=== PATIENT | male | born 1995 | race Caucasian/White ===

== ENCOUNTER 2022-10-04 10:47 | Emergency (ER) | payer OTHER ==
--- NOTE | 2022-10-04 11:45 | XR ---
EXAMINATION TYPE: XR chest 2V DATE OF EXAM: 10/04/2022 11:40 AM COMPARISON: Chest radiographs from 10/04/2022 TECHNIQUE: XR chest 2V Frontal and lateral views of the chest. CLINICAL INDICATION:Male, 26 years old with history of Chest Pain; FINDINGS: Lungs/Pleura: There is no evidence of pleural effusion, focal consolidation, or pneumothorax. Pulmonary vascularity: Unremarkable. Heart/mediastinum: Cardiomediastinal silhouette is unremarkable. Musculoskeletal: No acute osseous pathology. IMPRESSION: No acute cardiopulmonary disease/process.
[2022-10-04 13:10] LABS: Basophils # (A) 0.1 k/uL (0-0.2); Basophils % (A) 2 %; Eosinophils % (A) 11 %; HCT 46.7 % (39.0-53.0); HGB 16.4 gm/dL (13.0-17.5); Lymphocytes # (A) 2.3 k/uL (1.0-4.8); Lymphocytes % (A) 26 %; MCH 29.3 pg (25.0-35.0); MCHC 35.2 g/dL (31.0-37.0); MCV 83.1 fL (80.0-100.0); Mean Platelet Volume 8.3; Monocytes # (A) 0.6 k/uL (0-1.0); Monocytes % (A) 7 %; Neutrophils # (A) 4.6 k/uL (1.3-7.7); Neutrophils % (A) 52 %; Platelet Count 281 k/uL (150-450); RBC 5.62 m/uL (4.30-5.90); RDW 12.8 % (11.5-15.5); WBC 8.9 k/uL (3.8-10.6)
[2022-10-04 13:24] LABS: ALT 24 U/L (4-49); AST 27 U/L (17-59); African American GFR (CKD) >90 (>60 ml/min/1.73 sqM); Alkaline Phosphatase 93 U/L (38-126); Anion Gap 9 mmol/L; Blood Urea Nitrogen 13 mg/dL (9-20); Carbon Dioxide 26 mmol/L (22-30); Chloride 108 mmol/L (98-107); Glucose 91 mg/dL (74-99); Magnesium 1.9 mg/dL (1.6-2.3); Non-African American GFR(CKD) >90 (>60 ml/min/1.73 sqM); Potassium 5.1 mmol/L (3.5-5.1); Sodium 143 mmol/L (137-145); Total Bilirubin 0.6 mg/dL (0.2-1.3)
[2022-10-04] MEDS ORDERED: KETOROLAC 15 MG/ML 1 ML VIAL IM STA (16:07)
[2022-10-04] MEDS ORDERED: ALBUTEROL NEBULIZED 2.5 MG/3 ML INHALATION STA (16:07)
--- NOTE | 2022-10-04 16:24 | ED ---
General Adult HPI - General Chief complaint: Chest Pain Stated complaint: chest pain, lt side numbness Time Seen by Provider: 10/04/22 15:59 Source: patient, RN notes reviewed Mode of arrival: ambulatory Limitations: no limitations - History of Present Illness Initial comments: Patient is a 26-year-old male presenting to the emergency room comp laints of sudden on of chest pain which was stabbing in nature midsternal any known aggravating or alleviating factors. This chest pain has since subsided since his arrival to the emergency room but he has continued atypical chest pain on the right side that is worse with deep inspiration radiating posteriorly. He does have a past medical history significant for asthma and has not utilized breathing treatments in quite some time and reports that his wheeze recently has become quite low. He also is exposed to inhalants at work on a regular basis. He has a family past medical history significant for his father having a heart attack at the age of 35. He denies any other associated symptoms with his stabbing chest pain or his chest pain that he is currently experiencing including any orthopnea, diaphoresis, headache, dizziness, lower extremity edema, shortness breath with exertion, abdominal pain, nausea, vomiting, fevers or chills. He has no other significant past medical history. - Related Data Previous Rx's Medication Instructions Recorded Albuterol Inhaler [Ventolin Hfa 1 - 2 puff INHALATION Q6H PRN 30 10/04/22 Inhaler] Days #1 each methylPREDNISolone Dose Pack 4 mg PO DIRECTED #21 tab 10/04/22 [Medrol Dose Pack] Allergies Allergy/AdvReac Type Severity Reaction Status Date / Time diphenhydramine Allergy Rash/Hives Verified 10/04/22 11:20 [From Benadryl] Penicillins Allergy Rash/Hives Verified 10/04/22 11:20 Review of Systems ROS Statement: Those systems with pertinent positive or pertinent negative responses have been documented in the HPI. ROS Other: All systems not noted in ROS Statement are negative. Past Medical History Past Medical History: Asthma History of Any Multi-Drug Resistant Organisms: None Reported Past Surgical History: Orthopedic Surgery Past Psychological History: No Psychological Hx Reported Smoking Status: Current every day smoker Past Alcohol Use History: None Reported Past Drug Use History: Marijuana General Exam - General Exam Comments Initial Comments: GENERAL: No acute distress, well developed, well nourished. HEENT: Normocephalic, atraumatic. Pupils equal, round, reactive to light. Mucous membranes moist. LUNGS: Bilateral upper expiratory wheeze, no rales, rhonchi, or cough, no use of accessory muscles. HEART: Regular rate and rhythm without murmur, rub, or gallop. ABDOMEN: Normal bowel sounds. Soft, non-tender, non-distended. DERMATOLOGIC: Skin intact, without rashes or lesions noted. EXTREMITIES: No edema. No tenderness. Moves all extremities. NEUROLOGIC: Alert & oriented x 3. CN II-XII grossly intact. PSYCHIATRIC: Normal affect and behavior. Limitations: no limitations Course Vital Signs 10/04/22 10/04/22 10/04/22 11:17 16:00 16:01 Temperature 97.7 F Pulse Rate 84 72 Pulse Rate [ 66 Fusion Analyst ] Respiratory 16 18 Rate Blood Pressure 157/95 128/80 O2 Sat by Pulse 97 96 Oximetry 10/04/22 10/04/22 10/04/22 16:35 16:44 17:03 Temperature Pulse Rate 68 72 73 Pulse Rate [ Fusion Analyst ] Respiratory 16 Rate Blood Pressure 127/83 O2 Sat by Pulse 97 Oximetry Medical Decision Making - Medical Decision Making Was pt. sent in by a medical professional or institution? @ -None Did you speak to anyone other than the patient for history? @ -Patient and nurse Did you review nursing and triage notes? @ -Nursing and triage notes reviewed Were old charts reviewed? @ -No previous records available for review Differential Diagnosis? @ -Differential Chest Pain: Stable Angina, Unstable Angina, STEMI, NSTEMI Aortic Dissection, Pneumothorax, Musculoskeletal, Esophageal Spasm GERD, Cholecystitis, Pancreatitis, Zoster, this is not meant to be an all-inclusive list. EKG interpreted by me (3pts min.)? @- Completed at 11:30 demonstrating sinus rhythm, ventricular rate 81 bpm, KS interval 143 ms, QRS duration 90 ms, QT/QTC 361/399 ms, PRT axes 71, 80, 60 X-rays interpreted by me (1pt min.)? @ Chest x-ray 2 view no pleural effusion or consolidation. No cardiomegaly. CT interpreted by me (1pt min.)? @ -NA U/S interpreted by me (1pt. min.)? @ -NA What testing was considered but not performed? (CT, X-rays, U/S, labs)? Why? @ None What meds were considered but not given? Why? @ -None Did you discuss the management of the patient with other professionals? @ -No Did you reconcile home meds? @ -Not applicable Was smoking cessation discussed for >3mins.? @ -I discussed smoking cessation for greater than 3 minutes. The risk of smo bobby were discussed with the patient including but not limited to risks of cancer, stroke, coronary artery disease and COPD. Also discussed with patient were multiple methods of quitting smoking. Lastly we discussed the financial cost of smoking. Was critical care preformed (if so, how long)? @ - No Were there social determinants of health that impacted care today? How? (Homelessness, low income, unemployed, alcoholism, drug addiction, tr ansportation, low edu. Level, literacy, decrease access to med. care, long-term, rehab)? @ -Not applicable Was there de-escalation of care discussed even if they declined? (Discuss DNR or withdrawal of care, Hospice)? @ -No What co-morbidities impacted this encounter? (DM, HTN, Smoking, COPD, CAD, Cancer, CVA, Hep., AIDS, mental health diagnosis, sleep apnea, morbid obesity)? @ -Asthma Was patient admitted / discharged? @ -26-year-old male presenting to the emergency room with complaints of sudden onset of stabbing chest pain along with right-sided pain deep with inspiration radiating posteriorly and wheeze. Labs completed by triage including CBC, CMP, magnesium and troponin reviewed. Troponin negative, magnesium normal, CBC unremarkable with the exception of mildly slightly elevated signal fills consistent with possible asthma exacerbation. Chest x-ray reviewed as indicated above. Wheeze demonstrated on exam along with persistent pleuritic type chest pain. EKG reviewed and history normal sinus rhythm. Toradol IM along with albuterol nebulized treatment given. COVID swab added to laboratory studies are ready completed. COVID swab negative. Repeat troponin negative. Improvement in chest pain and wheeze after Toradol and albuterol treatment. Will discharge home in stable condition with treatment for asthma exacerbation and follow-up with his primary care provider. Case discussed with Dr. Perez. Undiagnosed new problem with uncertain prognosis? @ - None Drug Therapy requiring intensive monitoring for toxicity (Heparin, Nitro, Insulin, Cardizem)? @ - No Were any procedures done? @ - No Diagnosis/symptom? @ -Chest pain Acute, or Chronic, or Acute on Chronic? @ -Not applicable Uncomplicated (without systemic symptoms) or Complicated (systemic symptoms)? @ -Uncomplicated Side effects of treatment? @ -Not applicable Exacerbation, Progression, or Severe Exacerbation] @ -No Poses a threat to life or bodily function? @ -No Diagnosis/symptom? @ -Asthma exacerbation Acute, or Chronic, or Acute on Chronic? @ -Acute on chronic Uncomplicated (without systemic symptoms) or Complicated (systemic symptoms)? @ -Uncomplicated Side effects of treatment? @ -None Exacerbation, Progression, or Severe Exacerbation] @ -Exacerbation Poses a threat to life or bodily function? @ -No - Lab Data Result diagrams: 10/04/22 12:37 10/04/22 12:37 Lab Results 10/04/22 10/04/22 10/04/22 Range/Units 12:37 12:37 12:37 WBC 8.9 (3.8-10.6) k/uL RBC 5.62 (4.30-5.90) m/uL Hgb 16.4 (13.0-17.5) gm/dL Hct 46.7 (39.0-53.0) % MCV 83.1 (80.0-100.0) fL MCH 29.3 (25.0-35.0) pg MCHC 35.2 (31.0-37.0) g/dL RDW 12.8 (11.5-15.5) % Plt Count 281 (150-450) k/uL MPV 8.3 Neutrophils % 52 % Lymphocytes % 26 % Monocytes % 7 % Eosinophils % 11 % Basophils % 2 % Neutrophils # 4.6 (1.3-7.7) k/uL Lymphocytes # 2.3 (1.0-4.8) k/uL Monocytes # 0.6 (0-1.0) k/uL Eosinophils # 1.0 H (0-0.7) k/uL Basophils # 0.1 (0-0.2) k/uL Sodium 143 (137-145) mmol/L Potassium 5.1 (3.5-5.1) mmol/L Chloride 108 H (98-107) mmol/L Carbon Dioxide 26 (22-30) mmol/L Anion Gap 9 mmol/L BUN 13 (9-20) mg/dL Creatinine 0.65 L (0.66-1.25) mg/dL Est GFR (CKD-EPI)AfAm >90 (>60 ml/min/1.73 sqM) Est GFR (CKD-EPI)NonAf >90 (>60 ml/min/1.73 sqM) Glucose 91 (74-99) mg/dL Calcium 10.0 (8.4-10.2) mg/dL Magnesium 1.9 (1.6-2.3) mg/dL Total Bilirubin 0.6 (0.2-1.3) mg/dL AST 27 (17-59) U/L ALT 24 (4-49) U/L Alkaline Phosphatase 93 (38-126) U/L Troponin I <0.012 (0.000-0.034) ng/mL Total Protein 8.0 (6.3-8.2) g/dL Albumin 5.0 (3.5-5.0) g/dL Coronavirus (PCR) (Not Detectd) 10/04/22 10/04/22 Range/Units 16:12 16:50 WBC (3.8-10.6) k/uL RBC (4.30-5.90) m/uL Hgb (13.0-17.5) gm/dL Hct (39.0-53.0) % MCV (80.0-100.0) fL MCH (25.0-35.0) pg MCHC (31.0-37.0) g/dL RDW (11.5-15.5) % Plt Count (150-450) k/uL MPV Neutrophils % % Lymphocytes % % Monocytes % % Eosinophils % % Basophils % % Neutrophils # (1.3-7.7) k/uL Lymphocytes # (1.0-4.8) k/uL Monocytes # (0-1.0) k/uL Eosinophils # (0-0.7) k/uL Basophils # (0-0.2) k/uL Sodium (137-145) mmol/L Potassium (3.5-5.1) mmol/L Chloride (98-107) mmol/L Carbon Dioxide (22-30) mmol/L Anion Gap mmol/L BUN (9-20) mg/dL Creatinine (0.66-1.25) mg/dL Est GFR (CKD-EPI)AfAm (>60 ml/min/1.73 sqM) Est GFR (CKD-EPI)NonAf (>60 ml/min/1.73 sqM) Glucose (74-99) mg/dL Calcium (8.4-10.2) mg/dL Magnesium (1.6-2.3) mg/dL Total Bilirubin (0.2-1.3) mg/dL AST (17-59) U/L ALT (4-49) U/L Alkaline Phosphatase (38-126) U/L Troponin I <0.012 (0.000-0.034) ng/mL Total Protein (6.3-8.2) g/dL Albumin (3.5-5.0) g/dL Coronavirus (PCR) Not Detected (Not Detectd) - Radiology Data Radiology results: report reviewed, image reviewed Disposition Clinical Impression: Asthma exacerbation, Chest pain Disposition: HOME SELF-CARE Condition: Stable Instructions (If sedation given, give patient instructions): Chest Pain (ED), Asthma (ED), Costochondritis (ED) Additional Instructions: Please complete Medrol Dosepak as prescribed. Please utilize albuterol inhaler as needed. Avoid respiratory irritants and allergens when possible. Smoking sensation encouraged. Please follow-up with your primary care provider. Please return to the Emergency Department if symptoms worsen or any other concerns. Prescriptions: methylPREDNISolone Dose Pack [Medrol Dose Pack] 4 mg PO DIRECTED #21 tab Albuterol Inhaler [Ventolin Hfa Inhaler] 1 - 2 puff INHALATION Q6H PRN 30 Days #1 each PRN Reason: Shortness Of Breath Is patient prescribed a controlled substance at d/c from ED?: No Referrals: None,Stated [Primary Care Provider] - 1-2 days Time of Disposition: 17:50
[2022-10-04 17:51] VITALS: RESP 16
[2022-10-04 18:05] VITALS: BP 123/81; PULSE 63; TEMP 98
== END 2022-10-04 18:05 | disposition home or self-care (01) ==
LOC: EC 10:47
DX: J45.901 Unspecified asthma with (acute) exacerbation (principal); F17.200 Nicotine dependence, unspecified, uncomplicated; F12.90 Cannabis use, unspecified, uncomplicated; Z79.899 Other long term (current) drug therapy; Z88.8 Allergy status to other drugs, medicaments and biological substances; Z88.0 Allergy status to penicillin; Z20.822 Contact with and (suspected) exposure to COVID-19
CPT/HCPCS: 99285; 96372; 36415; 94640; 93005; 80053; 83735; 84484; 85025; 87635; 71046; J1885